=== PATIENT | female | born 1985 | race African-American/Black ===

== ENCOUNTER 2021-08-11 21:14 | Emergency (ER) | payer SELFPAY ==
[~2021-08-11] VITALS: Ht 170.2 cm; Wt 97.0 kg
[2021-08-11 21:55] VITALS: BP 184/109
[2021-08-11] MEDS ORDERED: IBUPROFEN 800MG TABLET PO ONE (22:30)
[2021-08-12] MEDS ORDERED: IBUP-2029 MT (00:04)
[2021-08-12] MEDS ORDERED: HYDR-4001 MT (00:04)
== END 2021-08-12 00:37 | disposition home or self-care (01) ==
LOC: ER 21:14
DX: S52.591A Other fractures of lower end of right radius, initial encounter for closed fracture (principal); W03.XXXA Other fall on same level due to collision with another person, initial encounter; Y93.51 Activity, roller skating (inline) and skateboarding; Y92.89 Other specified places as the place of occurrence of the external cause
CPT/HCPCS: 29125; 73110; 73130; 99284; A4565